=== PATIENT | female | born 1970 | race Caucasian/White ===

== ENCOUNTER 2021-10-19 11:10 | Emergency (ER) | payer BC, OTHER ==
[2021-10-19] MEDS ORDERED: HYDROmorphone 1 MG/ML Syringe IVPUSH ONE ×2 (11:14→13:20)
[2021-10-19 11:36] LABS: CHLORIDE,CL 102 mEq/L (98-106); SODIUM,NA 138 mEq/L (136-145)
[2021-10-19] MEDS ORDERED: cefTRIAXone 1 GM Vial IVPUSH ONE (11:43)
[2021-10-19] MEDS ORDERED: Sodium Chloride 0.9% 1,000 ML IV SCH (11:45)
[2021-10-19] MEDS ORDERED: metroNIDAZOLE/Normal Saline 500 MG in Premix Bag 1 BAG IV ONE (12:18)
== END 2021-10-19 13:40 ==
LOC: CC.ED 11:10
DX: K35.80 Unspecified acute appendicitis (principal); Z72.0 Tobacco use; Z20.822 Contact with and (suspected) exposure to COVID-19
CPT/HCPCS: 36415; 74176; 80053; 81001; 82150; 83690; 85025; 86140; 96365; 96375; 96376; 99284; 99285-25; J0696; J1170; J3490; J7030; U0002